=== PATIENT | male | born 1970 | race Caucasian/White ===

== ENCOUNTER 2020-03-22 10:11 | Day surgery (SDC) | payer BC ==
[~2020-03-22] VITALS: Ht 182.9 cm; Wt 84.3 kg
[2020-03-22 10:34] VITALS: BP 127/89; PULSE 59; TEMP 97.8
[2020-03-22] MEDS ORDERED: NORCO 325 MG-51 TAB PO (12:34)
[2020-03-22 12:59] VITALS: TEMP 98.5
[2020-03-22 13:30] VITALS: BP 131/85; PULSE 59
--- NOTE | 2020-03-22 13:30 | NUR ---
Patient arrives to [facility] via cart, accompanied by [employer] Rajani. He is alert and oriented, sipping water, chatting with staff. His incisions x3 are covered with clean/dry/intact bandaids. He denies nausea. He has pain in his abdomen at 2/10. He is offered and receives juice and a muffin to eat. His VS are stable on room air. His , Kate, is called and notified that he is now in the [facility] area recovering.
[2020-03-22 13:45] VITALS: BP 124/73; PULSE 58
--- NOTE | 2020-03-22 13:45 | NUR ---
Patient's VSS and WNL on room air. Pain remains 2/10, he is given a [place] PO for pain. He has ate his muffin/drank his juice and denies nausea. Bandaids remain clean/dry/intact. Will continue to monitor.
[2020-03-22 14:00] VITALS: BP 118/80; PULSE 58
--- NOTE | 2020-03-22 14:00 | NUR ---
Patient resting comfortably in room. Denies pain, nausea, or need.
[2020-03-22 14:30] VITALS: BP 121/74; PULSE 57
--- NOTE | 2020-03-22 14:30 | NUR ---
VSS and WNL on room air. Patient denies pain, nausea, or need. He ambulates to the restroom with standby assist, voids, and returns to room.
--- NOTE | 2020-03-22 15:03 | NUR ---
Patient has met discharge criteria. PIV is removed with catheter intact and hemostasis achieved. Discharge instructions are discussed. He denies any questions and verbalizes understanding. He changes to his clothing independently. He is escorted to the exit via wheelchair and discharged to home with ride in private vehicle at 1503.
== END 2020-03-22 15:03 | disposition home or self-care (01) ==
LOC: SDCO 10:11
DX: K81.1 Chronic cholecystitis (principal); K21.9 Gastro-esophageal reflux disease without esophagitis; Z88.6 Allergy status to analgesic agent
CPT/HCPCS: J0330; J1100; J1885; J2405; J2704; J3010; J7120

== ENCOUNTER → 2020-11-17 | Outpatient (CLI) | payer BC ==
[~2020-11-17] MED LIST: NORCO 325 MG-51 TAB PO
== END ==
LOC: COL.RAD 09:05
DX: M25.521 Pain in right elbow (principal)